=== PATIENT | female | born 2000 | race Caucasian/White ===

== ENCOUNTER 2021-04-28 14:24 | Emergency (ER) | payer SELFPAY ==
[2021-04-28 15:04] LABS: Absolute Lymphocytes (CBC) 1.8 K/uL (0.7-4.9); Hematocrit 40.3 % (36.0-45.0); Lymphocytes % 28.3 % (15.3-44.8); MPV 7.9 fL (7.6-11.3); RBC Red Blood Cell Count 5.05 M/uL (3.86-4.86)
--- NOTE | 2021-04-28 15:18 | RAD REPORT ---
EXAM DESCRIPTION: RAD - Chest Single View - 04/28/2021 2:50 pm CLINICAL HISTORY: CHEST PAIN Chest pain. COMPARISON: No comparisons FINDINGS: Portable technique limits examination quality. The lungs are grossly clear. The heart is normal in size. No displaced fractures. IMPRESSION: No acute intrathoracic process suspected.
[2021-04-28 15:28] LABS: BUN Blood Urea Nitrogen 8 mg/dL (7-18); Bicarbonate 25 mmol/L (21-32); Glucose Level 120 mg/dL (74-106); Potassium 3.9 mmol/L (3.5-5.1); Sodium Level 138 mmol/L (136-145)
[2021-04-28 15:51] LABS: Troponin High Sensitivity < 3.00 pg/mL (<58.9)
--- NOTE | 2021-04-28 16:00 | ER ---
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 Pt c/o right sided chest pain radiating to right shoulder. Coronavirus screen: At this time, the client does not indicate any symptoms associated with coronavirus-19. Ebola Screen: No symptoms or risks identified at this time. Initial Sepsis Screen: Does the patient meet any 2 criteria? No. Patient's initial sepsis screen is negative. Does the patient have a suspected source of infection? No. Patient's initial sepsis screen is negative. Risk Assessment: Do you want to hurt yourself or someone else? Patient reports no desire to harm self or others. Onset of symptoms was April 28, 2021. 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 - Social history:: Smoking status: Patient denies any tobacco usage or history of. Screenin:44 Abuse screen: Denies threats or abuse. Nutritional screening: No deficits noted. ap3 Tuberculosis screening: No symptoms or risk factors identified. Fall Risk None identified. Assessment: 14:43 General: Appears in no apparent distress. comfortable, Behavior is calm, cooperative, ap3 appropriate for age. Pain: Complains of pain in chest Pain radiates to right arm and left arm Pain began suddenly. Neuro: Level of Consciousness is awake, alert, obeys commands, Oriented to person, place, time, situation, Appropriate for age Gait is steady, Speech is normal. Cardiovascular: Reports chest pain, Chest pain is described as mild, quality is pressure, radiates to right to left arm(s) began 30 minutes prior to arrival. Respiratory: Airway is patent Respiratory effort is even, unlabored, Respiratory pattern is regular, symmetrical. 14:54 Reassessment: Patient and/or family updated on plan of care and expected duration. Pain ap3 level reassessed. Patient is alert, oriented x 3, equal unlabored respirations, skin warm/dry/pink. 15:40 Reassessment: Patient and/or family updated on plan of care and expected duration. Pain ap3 level reassessed. Patient is alert, oriented x 3, equal unlabored respirations, skin warm/dry/pink. Vital Signs: 14:30 BP 153 / 99; Pulse 87; Resp 18 S; Temp 98.8(TE); Pulse Ox 97% on R/A; Weight 108.86 kg aa5 (R); Height 5 ft. 8 in. (172.72 cm) (R); 15:36 BP 128 / 82; Pulse 81; Pulse Ox 100% ; ap3 14:30 Body Mass Index 36.49 (108.86 kg, 172.72 cm) aa5 ED Course: 14:27 Patient arrived in ED. kz 14:30 Arm band placed on. aa5 14:31 Myrtle Joshi FNP-C is [facility]. kb 14:31 Alvarez Krishnan MD is Attending Physician. kb 14:31 Triage completed. aa5 14:33 Marcia Valenzuela, DUSTIN is Primary Nurse. ap3 14:43 EKG done, by ED staff, reviewed by Myrtle BARBER. ap3 14:44 Patient has correct armband on for positive identification. Placed in gown. Bed in low ap3 position. Call light in reach. Side rails up X 1. Adult w/ patient. child monitor on. Pulse ox on. NIBP on. Door closed. Noise minimized. 14:45 Patient maintains SpO2 saturation greater than 95% on room air. ap3 14:50 Inserted saline lock: 20 gauge in right antecubital area, using aseptic technique. ap3 Blood collected. 14:51 Chest Single View XRAY In Process Unspecified. EDMS 16:32 No provider procedures requiring assistance completed. IV discontinued, intact, ap3 bleeding controlled, No redness/swelling at site. Pressure dressing applied. Administered Medications: No medications were administered Outcome: 16:00 Discharge ordered by . kb 16:32 Discharged to home ambulatory, with family. ap3 16:32 Condition: good 16:32 Discharge instructions given to patient, family, Instructed on discharge instructions, follow up and referral plans. Demonstrated understanding of instructions, follow-up care. 16:33 Patient left the ED. 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 Pt c/o right sided chest pain radiating to right shoulder aa5
--- NOTE | 2021-04-28 16:01 | EDPHYS ---
Physician Documentation [facility] Name: Mague Null Age: 21 yrs Sex: Female : 2000 Arrival Date: 04/28/2021 Time: 14:27 Bed 17 Private MD: ED Physician Alvarez Krishnan HPI: 04/28 14:55 This 21 yrs old Female presents to ER via Ambulatory with complaints of Chest Pain. kb 14:55 The patient or guardian reports chest pain that is located primarily in the anterior kb chest wall, right. The pain does not radiate. Associated signs and symptoms: The patient has no apparent associated signs or symptoms. The chest pain is described as sharp. Duration: The patient or guardian reports a single episode, that is still ongoing, but improving. Modifying factors: The symptoms are alleviated by nothing. the symptoms are aggravated by nothing. Severity of pain: At its worst the pain was moderate in the emergency department the pain has improved moderately. The patient has not experienced similar symptoms in the past. The patient has not recently seen a physician. 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 States the pain is getting better now. 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 - Social history:: Smoking status: Patient denies any tobacco usage or history of. ROS: 14:55 Constitutional: Negative for fever, chills, and weight loss. kb 14:55 Cardiovascular: Positive for chest pain, Negative for edema, orthopnea, palpitations, paroxysmal nocturnal dyspnea. 14:55 All other systems are negative. Exam: 14:53 Constitutional: This is a well developed, well nourished patient who is awake, alert, kb and in no acute distress. Head/Face: Normocephalic, atraumatic. ENT: Moist Mucous membranes Cardiovascular: Regular rate and rhythm with a normal S1 and S2. No gallops, murmurs, or rubs. No pulse deficits. Respiratory: Respirations even and unlabored. No increased work of breathing. Talking in full sentences Abdomen/GI: Soft, non-tender. No distention Skin: Warm, dry with normal turgor. Normal color. MS/ Extremity: Pulses equal, no cyanosis. Neurovascular intact. Full, normal range of motion. Neuro: Awake and alert, GCS 15, oriented to person, place, time, and situation. Moves all extremities. Normal gait. Psych: Awake, alert, with orientation to person, place and time. Behavior, mood, and affect are within normal limits. 14:53 ECG was reviewed by the Attending Physician. Vital Signs: 14:30 BP 153 / 99; Pulse 87; Resp 18 S; Temp 98.8(TE); Pulse Ox 97% on R/A; Weight 108.86 kg aa5 (R); Height 5 ft. 8 in. (172.72 cm) (R); 15:36 BP 128 / 82; Pulse 81; Pulse Ox 100% ; ap3 14:30 Body Mass Index 36.49 (108.86 kg, 172.72 cm) aa5 MDM: 14:33 Patient medically screened. kb 14:55 Data reviewed: vital signs, nurses notes. Data interpreted: Pulse oximetry: on room air kb is 97 %. Interpretation: normal. 16:00 Counseling: I had a detailed discussion with the patient and/or guardian regarding: the kb historical points, exam findings, and any diagnostic results supporting the discharge/admit diagnosis, lab results, radiology results, the need for outpatient follow up, a family practitioner, to return to the emergency department if symptoms worsen or persist or if there are any questions or concerns that arise at home. 04/28 14:34 Order name: CBC with Diff; Complete Time: 15:07 kb 04/28 14:34 Order name: Basic Metabolic Panel; Complete Time: 15:55 kb 04/28 14:34 Order name: IV Start; Complete Time: 14:53 kb 04/28 14:34 Order name: EKG; Complete Time: 14:34 kb 04/28 14:34 Order name: Chest Single View XRAY; Complete Time: 15:19 kb 04/28 14:34 Order name: Troponin High Sensitivity; Complete Time: 15:55 kb 04/28 14:34 Order name: EKG - Nurse/Tech; Complete Time: 14:43 kb EC:53 Rate is 79 beats/min. Rhythm is regular. QRS [place] is Normal. VA interval is normal at kb 150 msec. QRS interval is normal at 110 msec. QT interval is normal at 380 msec. Administered Medications: No medications were administered Disposition: 18:16 Co-signature as Attending Physician, Alvarez Krishnan MD I agree with the assessment and kdr plan of care. Disposition Summary: 04/28/21 16:00 Discharge Ordered Location: Home kb Condition: Stable kb Diagnosis - Chest pain, unspecified kb Followup: kb - With: Emergency Department - When: As needed - Reason: Worsening of condition Followup: kb - With: Private Physician - When: 2 - 3 days - Reason: Recheck today's complaints, Continuance of care, Re-evaluation by your physician Discharge Instructions: - Discharge Summary Sheet kb - Nonspecific Chest Pain, Adult, [id number] kb Forms: - Medication Reconciliation Form kb - Thank You Letter kb - Antibiotic Education kb - Prescription Opioid Use kb Signatures: Dispatcher [employer] EDSC Myrtle Joshi, ERIN-C ERIN-Alvarez Bennett MD MD kdr Calderon, Audri, RN RN aa5 Marcia Valenzuela RN RN ap3
[2021-04-28 16:53] VITALS: BP 128/82; O2SAT 100
[2021-04-28 16:54] VITALS: TEMP 98.8
--- NOTE | 2021-04-29 08:45 | EKG ---
Test Date: 2021-04-28 Test Time: 14:40:13 Agriculture Instructor: ALP MEASUREMENT RESULTS: Intervals: Rate: 79 KS: 150 QRSD: 110 QT: 380 QTc: 435 [place]: P: 51 KS: 150 QRS: 85 T: 59 INTERPRETIVE STATEMENTS: Normal sinus rhythm Normal ECG Compared to ECG 04/28/2021 14:39:44 No significant changes Electronically Signed On 04-29-21 08:42:20 CDT by Jagdish Taylor
--- NOTE | 2021-04-29 08:45 | EKG ---
Test Date: 2021-04-28 Test Time: 14:39:44 Equipment Coordinator: ALP MEASUREMENT RESULTS: Intervals: Rate: 82 KS: 152 QRSD: 104 QT: 378 QTc: 441 [place]: P: 55 KS: 152 QRS: 87 T: 65 INTERPRETIVE STATEMENTS: Normal sinus rhythm Normal ECG No previous ECG available for comparison Electronically Signed On 04-29-21 08:42:21 CDT by Jagdish Taylor
== END 2021-04-28 16:33 | disposition home or self-care (01) ==
LOC: ER 14:24
DX: R07.9 Chest pain, unspecified (principal); I10 Essential (primary) hypertension
CPT/HCPCS: 36415; 71045; 80048; 84484; 85025; 93005; 99285

== ENCOUNTER 2021-08-16 02:07 | Inpatient (IN) | payer OTHER, SELFPAY ==
[2021-08-16] MEDS ORDERED: ONDANSETRON 4 MG/2 ML VIAL ONE ×2 (02:41→13:23)
[2021-08-16] MEDS ORDERED: NA CHLORIDE 0.9% 1,000 ML ONE (02:41)
[2021-08-16 03:25] LABS: Urine Blood Negative (Negative); Urine Glucose Negative (Negative); Urine Protein 1+ (Negative); Urine Specific Gravity >=1.030 (1.005-1.030); Urine pH 6.5 (5.0-7.0)
[2021-08-16 03:34] LABS: Absolute Lymphocytes (CBC) 1.3 K/uL (0.7-4.9); Hematocrit 43.2 % (36.0-45.0); Lymphocytes % 8.4 % (15.3-44.8); MCV 81.2 fL (80-100); MPV 8.4 fL (7.6-11.3); RBC Red Blood Cell Count 5.32 M/uL (3.86-4.86)
[2021-08-16] MEDS ORDERED: MORPHINE 4 MG/ML SYR ONE (03:43)
[2021-08-16 03:55] LABS: Albumin 4.2 g/dL (3.4-5.0); Bilirubin Total 0.5 mg/dL (0.2-1.0); Potassium 3.9 mmol/L (3.5-5.1); Protein, Total 9.1 g/dL (6.4-8.2)
--- NOTE | 2021-08-16 06:09 | ER ---
Nurse's Notes [facility] Name: Mague Null Age: 21 yrs Sex: Female : 2000 Arrival Date: 08/16/2021 Time: 02:11 Bed 8 Private MD: Diagnosis: Lower abdominal pain, unspecified;Elevated white blood cell count;Unspecified acute appendicitis Presentation: 08/16 02:38 Chief complaint: Patient states: "Stomach problems, I have been throwing up, and I feel tw5 dizzy.". Coronavirus screen: Vaccine status: Patient reports receiving the 2nd dose of the covid vaccine. [employer]. Ebola Screen: Patient negative for fever greater than or equal to 101.5 degrees Fahrenheit, and additional compatible Ebola Virus Disease symptoms Patient denies exposure to infectious person. Patient denies travel to an Ebola-affected area in the 21 days before illness onset. Initial Sepsis Screen: Does the patient meet any 2 criteria? No. Patient's initial sepsis screen is negative. Does the patient have a suspected source of infection? No. Patient's initial sepsis screen is negative. Risk Assessment: Do you want to hurt yourself or someone else? Patient reports no desire to harm self or others. Onset of symptoms was August 16, 2021. 02:38 Method Of Arrival: Ambulatory tw5 02:38 Acuity: TONYA 3 tw5 Triage Assessment: 02:44 General: Appears uncomfortable, Behavior is calm, cooperative. Pain: Complains of pain tw5 in right lower quadrant and left lower quadrant. Neuro: Level of Consciousness is awake, alert, obeys commands, Oriented to person, place, time, situation. GI: Reports lower abdominal pain. 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 - Social history:: Smoking status: Patient denies any tobacco usage or history of. Screenin:46 Abuse screen: Denies threats or abuse. Denies injuries from another. Nutritional tw5 screening: No deficits noted. Tuberculosis screening: No symptoms or risk factors identified. Fall Risk IV access (20 points). Assessment: 02:46 GI: Reports nausea. tw5 03:41 General: Appears in no apparent distress. Behavior is calm, cooperative, appropriate tw5 for age. Pain: Pain currently is 7 out of 10 on a pain scale. GI: Abdomen is tender to palpation in right lower quadrant and left lower quadrant. 04:10 Reassessment: No changes from previously documented assessment. Patient and/or family kd3 updated on plan of care and expected duration. Pain level reassessed. Patient is alert, oriented x 3, equal unlabored respirations, skin warm/dry/pink. 06:05 Reassessment: Patient and/or family updated on plan of care and expected duration. Pain kd3 level reassessed. Patient is alert, oriented x 3, equal unlabored respirations, skin warm/dry/pink. 06:56 Reassessment: Patient states feeling better. Pain: Pain currently is 6 out of 10 on a tw5 pain scale. 07:30 General: Appears in no apparent distress. comfortable, Behavior is calm, cooperative, jd3 appropriate for age. Pain: Complains of pain in right lower quadrant Quality of pain is described as aching. Neuro: Beck Agitation-Sedation Scale (RASS): 0 - Alert and Calm Level of Consciousness is awake, alert, obeys commands, Oriented to person, place, time, situation. Cardiovascular: Capillary refill < 3 seconds Patient's skin is warm and dry. Respiratory: Airway is patent Respiratory effort is even, unlabored, Respiratory pattern is regular, symmetrical. GI: Abdomen is non-distended, Abdomen is tender to palpation in right lower quadrant Reports lower abdominal pain, nausea. : No signs and/or symptoms were reported regarding the genitourinary system. EENT: No signs and/or symptoms were reported regarding the EENT system. Derm: No signs and/or symptoms reported regarding the dermatologic system. Musculoskeletal: No signs and/or symptoms reported regarding the musculoskeletal system. Vital Signs: 02:38 BP 138 / 80; Pulse 81; Resp 18; Temp 98.3; Pulse Ox 100% on R/A; Weight 104.33 kg; tw5 Height 5 ft. 8 in. (172.72 cm); Pain 7/10; 03:41 BP 129 / 93; Pulse 102; Resp 18; Pulse Ox 99% on R/A; Pain 7/10; tw5 04:08 BP 126 / 80; Pulse 85; Resp 19; Pulse Ox 100% on R/A; kd3 06:05 BP 125 / 79; Pulse 94; Resp 18; Pulse Ox 100% on R/A; kd3 06:56 BP 131 / 81; Pulse 74; Resp 18; Pulse Ox 100% on R/A; Pain 6/10; tw5 06:56 Pain 6/10; tw5 08:10 BP 136 / 76; Pulse 97; Resp 16; Pulse Ox 99% on R/A; jd3 02:38 Body Mass Index 34.97 (104.33 kg, 172.72 cm) tw5 ED Course: 02:11 Patient arrived in ED. bp1 02:21 Nick Lockett MD is Attending Physician. donovan 02:28 Giuliana Hairston is Primary Nurse. tw5 02:44 Triage completed. tw5 02:44 Arm band placed on left wrist. tw5 02:46 Patient has correct armband on for positive identification. Placed in gown. Bed in low tw5 position. Call light in reach. 02:46 No provider procedures requiring assistance completed. Inserted saline lock: 20 gauge tw5 in left antecubital area, using aseptic technique. Blood collected. 03:19 CBC with Diff Sent. tw5 03:19 CMP Sent. tw5 03:19 Lipase Sent. tw5 04:21 CT Abd/Pelvis - IV Contrast Only In Process Unspecified. EDMS 06:08 Agapito Herrera MD is Hospitalizing Provider. donovan 06:56 Pulse ox on. NIBP on. Door closed. Noise minimized. Lights dimmed. Moved to private tw5 room. Warm blanket given. Pillow given. Verbal reassurance given. Assisted to bathroom. 13:22 Patient admitted, IV remains in place. jd3 Administered Medications: 02:48 Drug: NS 0.9% 1000 ml Route: IV; Rate: 1 bolus; Site: left antecubital; tw5 06:56 Follow up: Response: No adverse reaction; IV Status: Completed infusion; IV Intake: tw5 1000ml 02:48 Drug: Zofran (Ondansetron) 4 mg Route: IVP; Site: left antecubital; tw5 03:41 Follow up: Response: No adverse reaction tw5 03:41 Drug: morphine 4 mg Route: IVP; Infused Over: 4 mins; Site: left antecubital; tw5 06:56 Follow up: Pain 6/10 Adult; Response: No adverse reaction; Pain is decreased; RASS: tw5 Alert and Calm (0) 06:19 Drug: Zosyn (piperacillin-tazobactam) 3.375 grams Route: IVPB; Infused Over: 60 mins; kd3 Site: left antecubital; 06:56 Follow up: IV Status: Completed infusion; IV Intake: 100ml tw5 Medication: 04:09 VIS not applicable for this client. kd3 Intake: 06:56 IV: 100ml; Total: 100ml. tw5 06:56 IV: 1000ml; Total: 1100ml. tw5 Outcome: 06:09 Decision to Hospitalize by Provider. donovan 13:19 Admitted to OR accompanied by nurse, via stretcher, with chart, Report called to OR william and Roseline CHAN nurse for room 209 13:19 Condition: stable 13:19 Instructed on the need for admit, Demonstrated understanding of instructions. 13:24 Patient left the ED. william Signatures: Dispatcher [employer] EDNick Mark MD MD cha Davies, Jonathon, RN RN jd3 Jodi Hou Tiffany tw5 Ivy Clarke RN RN kd3 Corrections: (The following items were deleted from the chart) 06:45 02:46 GI: tw5 tw5
--- NOTE | 2021-08-16 06:09 | EDPHYS ---
Physician Documentation [facility] Name: Mague Null Age: 21 yrs Sex: Female : 2000 Arrival Date: 08/16/2021 Time: 02:11 Bed 8 Private MD: ED Physician Nick Lockett HPI: 08/16 03:34 This 21 yrs old Female presents to ER via Ambulatory with complaints of donovan Abdominal Cramping, Vomiting, Dizziness. 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 - Social history:: Smoking status: Patient denies any tobacco usage or history of. ROS: 03:35 Constitutional: Negative for fever, chills, and weight loss, Eyes: Negative for injury, donovan pain, redness, and discharge, ENT: Negative for injury, pain, and discharge, Neck: Negative for injury, pain, and swelling, Cardiovascular: Negative for chest pain, palpitations, and edema, Respiratory: Negative for shortness of breath, cough, wheezing, and pleuritic chest pain, Back: Negative for injury and pain, : Negative for injury, bleeding, discharge, and swelling, MS/Extremity: Negative for injury and deformity, Skin: Negative for injury, rash, and discoloration, Neuro: Negative for headache, weakness, numbness, tingling, and seizure, Psych: Negative for depression, anxiety, suicide ideation, homicidal ideation, and hallucinations, Allergy/Immunology: Negative for hives, rash, and allergies, Endocrine: Negative for neck swelling, polydipsia, polyuria, polyphagia, and marked weight changes, Hematologic/Lymphatic: Negative for swollen nodes, abnormal bleeding, and unusual bruising. 03:35 Abdomen/GI: Positive for abdominal pain, nausea, diarrhea, abdominal cramps, of the right upper quadrant, left upper quadrant and left lower quadrant. Exam: 03:35 Constitutional: This is a well developed, well nourished patient who is awake, alert, donovan and in no acute distress. Head/Face: Normocephalic, atraumatic. Eyes: Pupils equal round and reactive to light, extra-ocular motions intact. Lids and lashes normal. Conjunctiva and sclera are non-icteric and not injected. Cornea within normal limits. Periorbital areas with no swelling, redness, or edema. ENT: Nares patent. No nasal discharge, no septal abnormalities noted. Tympanic membranes are normal and external auditory canals are clear. Oropharynx with no redness, swelling, or masses, exudates, or evidence of obstruction, uvula midline. Mucous membranes moist. Neck: Trachea midline, no thyromegaly or masses palpated, and no cervical lymphadenopathy. Supple, full range of motion without nuchal rigidity, or vertebral point tenderness. No Meningismus. Chest/axilla: Normal chest wall appearance and motion. Nontender with no deformity. No lesions are appreciated. Cardiovascular: Regular rate and rhythm with a normal S1 and S2. No gallops, murmurs, or rubs. Normal PMI, no JVD. No pulse deficits. Respiratory: Lungs have equal breath sounds bilaterally, clear to auscultation and percussion. No rales, rhonchi or wheezes noted. No increased work of breathing, no retractions or nasal flaring. Back: No spinal tenderness. No costovertebral tenderness. Full range of motion. Skin: Warm, dry with normal turgor. Normal color with no rashes, no lesions, and no evidence of cellulitis. MS/ Extremity: Pulses equal, no cyanosis. Neurovascular intact. Full, normal range of motion. Neuro: Awake and alert, GCS 15, oriented to person, place, time, and situation. Cranial nerves II-XII grossly intact. Motor strength 5/5 in all extremities. Sensory grossly intact. Cerebellar exam normal. Normal gait. Psych: Awake, alert, with orientation to person, place and time. Behavior, mood, and affect are within normal limits. 03:35 Abdomen/GI: Inspection: abdomen appears normal, Bowel sounds: normal, Palpation: moderate abdominal tenderness, in the right upper quadrant, left upper quadrant and left lower quadrant, Liver: no appreciated palpable abnormalities, Hernia: not appreciated. Vital Signs: 02:38 BP 138 / 80; Pulse 81; Resp 18; Temp 98.3; Pulse Ox 100% on R/A; Weight 104.33 kg; tw5 Height 5 ft. 8 in. (172.72 cm); Pain 7/10; 03:41 BP 129 / 93; Pulse 102; Resp 18; Pulse Ox 99% on R/A; Pain 7/10; tw5 04:08 BP 126 / 80; Pulse 85; Resp 19; Pulse Ox 100% on R/A; kd3 06:05 BP 125 / 79; Pulse 94; Resp 18; Pulse Ox 100% on R/A; kd3 06:56 BP 131 / 81; Pulse 74; Resp 18; Pulse Ox 100% on R/A; Pain 6/10; tw5 06:56 Pain 6/10; tw5 08:10 BP 136 / 76; Pulse 97; Resp 16; Pulse Ox 99% on R/A; jd3 02:38 Body Mass Index 34.97 (104.33 kg, 172.72 cm) tw5 MDM: 02:21 Patient medically screened. [facility] 03:37 Differential diagnosis: appendicitis, bowel obstruction, Cholelithiasis, donovan diverticulitis, non-specific abd pain. Data reviewed: vital signs, lab test result(s), CBC, electrolytes, hepatic panel, urinalysis. Data interpreted: library monitor: not applicable for this patient encounter. rate is 81 beats/min, rhythm is normal sinus rhythm, Pulse oximetry: on room air is 100 %. Test interpretation: by ED physician or midlevel provider:. Counseling: I had a detailed discussion with the patient and/or guardian regarding: the historical points, exam findings, and any diagnostic results supporting the discharge/admit diagnosis, lab results, radiology results. 08/16 02:21 Order name: CBC with Diff; Complete Time: 03:36 [facility] 08/16 02:21 Order name: CMP; Complete Time: 04:07 [facility] 08/16 02:21 Order name: Lipase; Complete Time: 04:07 [facility] 08/16 03:26 Order name: Urine Dipstick-Ancillary; Complete Time: 03:33 [facility] 08/16 07:02 Order name: COVID-19 SARS RT PCR (Document "Date of Onset" if Symptomatic) tw5 08/16 02:21 Order name: IV Saline Lock; Complete Time: 02:47 [facility] 08/16 02:21 Order name: Labs collected and sent; Complete Time: 02:47 [facility] 08/16 03:34 Order name: CT Abd/Pelvis - IV Contrast Only [facility] 08/16 09:28 Order name: SARS-COV-2 RT PCR [facility] 08/16 02:21 Order name: Urine Dipstick-Ancillary (obtain specimen); Complete Time: 03:20 [facility] 08/16 02:21 Order name: Urine Test (obtain specimen); Complete Time: 03:20 donovan Administered Medications: 02:48 Drug: NS 0.9% 1000 ml Route: IV; Rate: 1 bolus; Site: left antecubital; tw5 06:56 Follow up: Response: No adverse reaction; IV Status: Completed infusion; IV Intake: tw5 1000ml 02:48 Drug: Zofran (Ondansetron) 4 mg Route: IVP; Site: left antecubital; tw5 03:41 Follow up: Response: No adverse reaction tw5 03:41 Drug: morphine 4 mg Route: IVP; Infused Over: 4 mins; Site: left antecubital; tw5 06:56 Follow up: Pain 6/10 Adult; Response: No adverse reaction; Pain is decreased; RASS: tw5 Alert and Calm (0) 06:19 Drug: Zosyn (piperacillin-tazobactam) 3.375 grams Route: IVPB; Infused Over: 60 mins; kd3 Site: left antecubital; 06:56 Follow up: IV Status: Completed infusion; IV Intake: 100ml tw5 Disposition Summary: 08/16/21 06:09 Hospitalization Ordered Hospitalization Status: Observation donovan Provider: Agapito Herrera cha Condition: Stable donovan Problem: new donovan Symptoms: have improved donovan Bed/Room Type: Standard donovan Location: Telemetry/MedSurg (observation)(08/16/21 12:04) em1 Room Assignment: [facility](08/16/21 12:04) em1 Diagnosis - Lower abdominal pain, unspecified donovan - Elevated white blood cell count donovan - Unspecified acute appendicitis donovan Forms: - Medication Reconciliation Form donovan - SBAR form donovan Signatures: Dispatcher [employer] Nick Pineda MD MD cha Williams, Irene, RN RN iw Cristobal Willson1 Giuliana Hairston tw5 Ivy Clarke RN RN kd3 Corrections: (The following items were deleted from the chart) :44 06:09 Telemetry/MedSurg (observation) donovan iw 09:44 06:09 donovan iw 12:04 09:44 [facility] ER HOLD iw em1 12:04 09:44 ERHOLD- iw em1
[2021-08-16] MEDS ORDERED: NA CHLORIDE 0.9% 100 ML ONE (06:18)
[2021-08-16] MEDS ORDERED: PIPERACIL/TAZO 3.375 GM VIAL IV ONE (06:18)
--- NOTE | 2021-08-16 10:27 | RAD REPORT ---
EXAM DESCRIPTION: CT - Abdomen Pelvis W Contrast - 08/16/2021 6:37 am CLINICAL HISTORY: Abdominal pain, acute, nonlocalized COMPARISON: None Available. TECHNIQUE: CT of the abdomen and pelvis performed following IV administration of iodinated contras t. This exam was performed according to our departmental dose-optimization program, which includes au tomated exposure control, adjustment of the mA and/or kV according to patient size and/or use of iter ative reconstruction technique. FINDINGS: Lung Bases: The visualized lung bases are clear. Bones: No destructive bone lesions identified. Abdomen: Liver: The liver has normal size and decreased density. No intrahepatic biliary dilatation. Gallbladder: No calcified gallstones. Spleen, Pancreas, and Adrenal Glands: The spleen, pancreas, and adrenal glands are unremarkable. Kidneys: No hydronephrosis or obstructing calculus. Vasculature: The aorta and IVC have normal caliber and position. The portal vein is patent. The pro ximal visceral and renal arteries are patent. Stomach: Small hiatal hernia. Other: No free intraperitoneal air. No definite lymphadenopathy. Pelvis: Bladder: Urinary bladder is unremarkable. Bowel: No dilated loops of large or small bowel. Mild wall thickening with submucosal fatty infiltr ation of the colon. Appendix: Dilation of the appendix measuring 0.9 cm with minimal periappendiceal inflammatory [place] e. Small amount of free fluid. Pelvis: Uterus is not enlarged. Small bilateral ovarian cysts, largest measuring 2.5 cm. IMPRESSION: 1. Dilation of the appendix measuring 0.9 cm with minimal periappendiceal inflammatory change. These findings could be seen with early acute appendicitis. 2. Mild wall thickening with submucosal fatty infiltration of the colon. These findings could be se en with chronic inflammatory colitis. 3. Small bilateral ovarian cysts, largest on the left measuring 2.5 cm. No follow-up imaging recomm ended. 4. Hepatic steatosis. Electronically signed by: Damien Magaña 08/16/2021 5:56 AM CDT Due to temporary technical issues with the PACS/Fluency reporting system, reports are being signed by the in house radiologists without review as a courtesy to insure prompt reporting. The interpreting radiologist is fully responsible for the content of the report.
[2021-08-16] MEDS ORDERED: ACETAMINOPHEN 500 MG TAB PO PRN (10:37)
[2021-08-16] MEDS: FAMOTIDINE 20 MG/2 ML VIAL IV SCH ×2 (10:37→20:43)
[2021-08-16] MEDS: NA CHLORIDE 0.9% 1,000 ML IV SCH ×3 (10:37→18:37)
[2021-08-16] MEDS ORDERED: ONDANSETRON 4 MG/2 ML VIAL IV PRN (10:37)
[2021-08-16] MEDS: MORPHINE 4 MG/ML SYR IV PRN (11:44)
[2021-08-16 12:10] VITALS: BMI 34.9
[2021-08-16] MEDS ORDERED: FENTANYL CITR 100 MCG/2 ML ONE (13:21)
[2021-08-16] MEDS ORDERED: MIDAZOLAM HCL 2 MG/2 ML INJ ONE (13:21)
[2021-08-16] MEDS ORDERED: LIDOCAINE 1% MPF 5 ML VIAL ONE (13:21)
[2021-08-16] MEDS ORDERED: propofoL 200 MG/20 ML VIAL IV ONE (13:21)
[2021-08-16] MEDS ORDERED: dexAMETHasone 4 MG/ML VIAL ONE (13:22)
[2021-08-16] MEDS ORDERED: GLYCOPYRROLATE 0.2 MG/ML SYR ONE (13:22)
[2021-08-16] MEDS ORDERED: MORPHINE 10 MG/ML VIAL ONE (13:23)
[2021-08-16] MEDS ORDERED: ROCURONIUM 50 MG/5 ML VIAL IV ONE (13:23)
[2021-08-16] MEDS ORDERED: KETOROLAC 30 MG/ML INJ ONE (13:23)
[2021-08-16] MEDS ORDERED: NEOSTIGMINE 1 MG/ML -10 ML VIAL ONE (13:31)
[2021-08-16] MEDS ORDERED: BUPIVACAINE 0.5% Inj,MDV 50 mL VIAL ONE (13:39)
--- NOTE | 2021-08-16 13:55 | P.HP ---
Date of Service: 08/16/21 PC: This 21-year-old female presented to the emergency room with severe abdominal pain for diagnosis and treatment. HPC: Patient was in the library, and noticed that she started having abdominal pain, felt lightheaded and dizzy. Started having periumbilical pain at that time. Pain has intensified and finally last night she could no longer stand it and came to our emergency room. PSHx: Negative PMHx: Hypertension Social Hx: No known allergies Sys R: No cough, wheeze, shortness of breath. No chest pain or palpitations. Has had some irregular periods over the last few months and suspect that she may be PCOS. Has not been checked out for it. Not on any hormones. O/E: Awake alert vital signs are stable afebrile HEENT: Within normal limits Chest: Air entry equal bilaterally Abd: Tender in the lower abdomen particularly on the right side with mild guarding. [place]: Intact Data: Elevated white cell count, CT scan suggest early appendicitis Impression: Acute abdomen with possible appendicitis Plan: I will take to the operating for laparoscopic possible open appendectomy. The risks of this procedure have been discussed. The possibility of bleeding, infection, injury to bowel blood vessels and surrounding structures was outlined. The possible need for open and/or further surgeries and procedures was discussed. She understands and wants us to proceed.
--- NOTE | 2021-08-16 15:23 | P.OP ---
Preoperative diagnosis: Acute abdomen Postoperative diagnosis: Acute appendicitis Primary procedure: Laparoscopic appendectomy Anesthesia: General Estimated blood loss: Less than 10 cc Specimen: 1 appendix Findings: Acute appendicitis Operative Technique: The patient brought the operating room and placed supine on the table. After the induction of adequate general and oral tracheal anesthesia, and the sterile insertion of a Ramon catheter, the abdomen was prepped with a Betadine solution, she was draped in the usual aseptic manner. A subumbilical incision was made. This was brought down through the skin and subcutaneous tissue. The Visiport was used to enter the peritoneal cavity and created pneumoperitoneum to approximately 12 mmHg. Under direct vision a 5 mm trocar was placed in the lower midline, and another on the right lateral side of the abdomen. The patient was then placed in marked Trendelenburg. The table was then rolled to the left. We can now visualize the right lower quadrant. There was an acutely inflamed appendix. The appendix was grasped and elevated. We were now able to establish a window in the base of the mesentery of the appendix just at its junction with the cecum. Having enlarged just the 10 mm trocar was now converted so we could pass our stapler to the peritoneal cavity. The stapler was placed across the base of the appendix at its junction with the cecum and fired. The mesentery of the appendix was then taken down with a vascular reload. Having detached the appendix, it was placed into an Endo Catch and brought out through the umbilical trocar site. Attention was turned back towards the right lower quadrant. No active bleeding was noted in the area. The patient was now returned to the neutral position on the OR table. The umbilical trocar site was approximated using the Endo Close and an absorbable suture. At this point the pneumoperitoneum was collapsed, the trochars removed, and wero were applied to the skin. At the end of the procedure she was stable and sent to the recovery room. Needle sponge instrument count were correct. Complications: None Transferred to: Recovery Room Condition: Good
[2021-08-16] MEDS: HYDROCODONE/APAP 7.5/325 MG TAB PO PRN ×2 (15:56→20:43)
[2021-08-16] MEDS: PIPER TAZO 3.375 GM in NA CHLORIDE 0.9% 100 ML IV SCH ×2 (15:56→22:01)
[2021-08-16 16:03] VITALS: O2SAT 96
[2021-08-17] MEDS: NA CHLORIDE 0.9% 1,000 ML IV SCH ×2 (02:37→09:02)
[2021-08-17] MEDS: MORPHINE 4 MG/ML SYR IV PRN (05:03)
[2021-08-17] MEDS: PIPER TAZO 3.375 GM in NA CHLORIDE 0.9% 100 ML IV SCH ×2 (06:20→14:59)
[2021-08-17] MEDS: FAMOTIDINE 20 MG/2 ML VIAL IV SCH (09:01)
[2021-08-17 15:47] VITALS: BP 149/86; TEMP 98.7
--- OUTSIDE RECORDS SUMMARY | 2021-08-27 19:34 | XMS REPORT | Continuity of Care Document ---
:2000 Author Organization [facility] t Address [address] [place] [address] 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 Allergies, Adverse Reactions, Alerts Allergy Allergy Status Severity Reaction(s) Onset Inactive Treating Comm ents Source Name Type Date Date Clinician NO KNOWN Drug Active [facility] ALLERGIE [facility] Medications This patient has no known medications. Procedures This patient has no known procedures. Encounters Start End Encounter Admission Attending Care Care Encounter Source Date/Time Date/Time Type Type Clinicians Facility Department ID 2019-09-26 2019-09-26 Outpatient Chuyita JAIN [facility] [id number] [facility] 13:45:00 13:45:00 SUNIL [facility] 2019-09-15 2019-09-15 Outpatient cMcDonald [facility] [id number] -[id number] [place] 11:14:00 11:14:00 [facility] 2019-09-15 2019-09-15 Outpatient cMcDonald [facility] MMG [id number] [place] 11:14:00 11:14:00 [facility] 2019-09-09 2019-09-09 Emergency X [facility] ERT [id number] [facility] 15:52:00 15:52:00 [facility] Results This patient has no known results.
== END 2021-08-17 17:30 | disposition home or self-care (01) | DRG 343 ==
LOC: ER 02:07 → ERHOLD 06:19 → OBSVTOIN 09:10 → 2ND 13:06
PROVIDERS: ADMIT Surgery; ATTEND Surgery
PROC: 0DTJ4ZZ Resection of Appendix, Percutaneous Endoscopic Approach (ICD-10-PCS; principal; 2021-08-16 14:00)
DX: K35.80 Unspecified acute appendicitis (principal); I10 Essential (primary) hypertension; E66.9 Obesity, unspecified; Z68.34 Body mass index [BMI] 34.0-34.9, adult; Z20.822 Contact with and (suspected) exposure to COVID-19
CPT/HCPCS: 36415; 74177; 80053; 81003; 83690; 85025; 88304; 94010; 96361; 96365; 96375; 99285; G0378; J1100; J2250; J2405; J2543; J2704; J2710; J3010; J3490; J7030; Q9967; U0003

== ENCOUNTER 2024-11-08 16:46 | Emergency (ER) | payer BC, OTHER ==
--- OUTSIDE RECORDS SUMMARY | 2024-11-08 16:49 | XMS REPORT | Continuity of Care Document ---
Author Name Unknown Address [address] [place] [address] [facility] [place] Address 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 Role Phone CARMEN CAMPOSH Primary Care Physician UnavailSANA Dahl Attending Clinician Unavailable SHIVA ENCISO Attending Clinician UnavailSHIVA Glover Attending Clinician Unavaila SUNIL Abraham Attending Clinician Unavailable Lesli Attending Clinician Unavailable Lesli Admitting Clinician Unavailable Payers Payer Name Policy Type Policy Number Effective Date Expirati on Date [facility] [id number] 2014 00:00:00 2022 00:00:00 [facility] [place] [facility] [id number] 2022 00:00:00 [facility] [id number] 2017 00:00:00 [facility] [place] (MEDICAID HMO) [id number] 2012 00:00:00 [place] [id number] 2019 00:00:00 Allergies, Adverse Reactions, Alerts Allergy Name Allergy Type Status Severity Reaction(s) Onset Date Inactive Date Treating Clinician Comments Source NO KNOWN ALLERGIE S Drug Class Active [facility] Encounters Start Date/Time End Date/Time Encounter Type Admission Type Attending Clinicians Care Facility Care Department Encounter ID Source 2022-10-09 13:00:00 2022-10-09 13:00:00 Outpatient SANA GAGNON [facility] [id number] [facility] 2022-09-29 14:30:00 2022-09-29 14:30:00 Outpatient SHIVA COPELAND CHERYAL [facility] [id number] [facility] 2019-09-26 13:45:00 2019-09-26 13:45:00 Outpatient SUNIL PALAFOX [facility] [id number] [facility] 2019-09-09 15:52:00 2019-09-09 15:52:00 Emergency X [facility] ERT [id number] [facility]
--- NOTE | 2024-11-08 18:46 | ER ---
Nurse's Notes [facility] Name: Kriss Null Age: 24 yrs Sex: Female : 2000 Arrival Date: 11/08/2024 Time: 16:46 Bed 5 Private MD: Diagnosis: Infectious mononucleosis, unspecified without complication Presentation: 11/08 17:01 Chief complaint: Patient states: SORE THROAT THAT BEGAN WEDNESDAY, WORSENED ON WEDNESDAY dd2 WITH SWOLLEN THROAT, PAIN, CHILLS, VOMITING AND DIFFICULTY SWALLOWING. Coronavirus screen: At this time, the client does not indicate any symptoms associated with coronavirus-19. Ebola Screen: No symptoms or risks identified at this time. Initial Sepsis Screen: Does the patient meet any 2 criteria? No. Patient's initial sepsis screen is negative. Does the patient have a suspected source of infection? No. Patient's initial sepsis screen is negative. Risk Assessment: Do you want to hurt yourself or someone else? Patient reports no desire to harm self or others. Onset of symptoms was November 04, 2024. 17:01 Method Of Arrival: Ambulatory dd2 17:01 Acuity: TONYA 3 dd2 Triage Assessment: 17:04 General: Appears in no apparent distress. uncomfortable, Behavior is calm, cooperative, dd2 appropriate for age. Pain: Complains of pain in throat. EENT: Throat is reddened has patchy exudate has enlarged tonsils bilaterally Reports difficulty swallowing pain when swallowing Pain is 8 out of 10 on a pain scale. 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 - Infectious Disease History:: Denies. - Social history:: Smoking status: Patient denies any tobacco usage or history of. Screenin:02 [facility] ED Fall Risk Assessment (Adult) History of falling in the last 3 months, bp including since admission No falls in past 3 months (0 pts) Confusion or Disorientation No (0 pts) Intoxicated or Sedated No (0 pts) Impaired Gait No (0 pts) Mobility Assist Device Used No (0 pt) Altered Elimination No (0 pt) Score/Fall Risk Level 0 - 2 = Low Risk Oriented to surroundings. Abuse screen: Denies threats or abuse. Denies injuries from another. Nutritional screening: No deficits noted. Tuberculosis screening: No symptoms or risk factors identified. Assessment: 17:05 General: SEE TRIAGE NOTE. Respiratory: Airway is patent Respiratory effort is even, bp unlabored, Breath sounds are clear bilaterally. Vital Signs: 17:01 BP 167 / 120; Pulse 103; Resp 19; Temp 98.7; Pulse Ox 100% ; Weight 104.33 kg; Height 5 dd2 ft. 8 in. ; Pain 8/10; 19:01 BP 147 / 90; Pulse 95; Resp 18; Pulse Ox 100% ; bp 17:01 Body Mass Index 34.97 (104.33 kg, 172.72 cm) dd2 17:01 Pain Scale: Adult dd2 ED Course: 16:50 Patient arrived in ED. im 16:50 Dave Nguyễn FNP-C is PHCP. dr5 16:50 Reggie Feldman DO is Attending Physician. dr5 17:04 Triage completed. dd2 17:04 Arm band placed on right wrist. dd2 17:08 Group A Streptococcus Rapid Sent. dd2 17:45 Gurpreet Osborne, RN is Primary Nurse. bp 17:50 Initial lab(s) drawn, by clinical laboratory science professor, sent to lab. ts3 19:02 Patient has correct armband on for positive identification. bp 19:02 No provider procedures requiring assistance completed. Patient did not have IV access bp during this emergency room visit. Administered Medications: 17:46 Drug: Dexamethasone IM 10 mg IM once Route: IM; Site: left deltoid; dd2 19:01 Follow up: Response: No adverse reaction db Outcome: 18:46 Discharge ordered by MD. dr5 19:02 Discharged to home ambulatory, with family, bp 19:02 Condition: stable 19:02 Discharge instructions given to patient, Instructed on discharge instructions, follow up and referral plans. medication usage, Demonstrated understanding of instructions, follow-up care, medications, Prescriptions given X 1, 19:03 Patient left the ED. bp Signatures: Gurpreet Osborne RN RN bp Benton, Danielle, RN RN db Alida Albert im NANCY BAKER RN RN dd2 Dave Nguyễn FNP-C PROJECT SURVEYOR-[facility]5 Tonie Valerio ts3
--- NOTE | 2024-11-08 18:46 | EDPHYS ---
Physician Documentation [facility] Name: Kriss Null Age: 24 yrs Sex: Female : 2000 Arrival Date: 11/08/2024 Time: 16:46 Bed 5 Private MD: ED Physician Reggie Feldman HPI: 11/08 19:11 This 24 yrs old Female presents to ER via Ambulatory with complaints of Sore dr5 Throat. 19:11 The patient presents with sore throat. dr5 19:12 Onset: The symptoms/episode began/occurred 2 day(s) ago. Patient is a 24-year-old dr5 female with history of hypertension coming in with sore throat that started 2 days ago. Patient denies sick contacts. Patient reports that she has had subjective fever.. 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 - Infectious Disease History:: Denies. - Social history:: Smoking status: Patient denies any tobacco usage or history of. ROS: 19:12 Constitutional: as per hpi dr5 Exam: 19:12 Constitutional: This is a well developed, well nourished patient who is awake, alert, dr5 and in no acute distress. Head/Face: Normocephalic, atraumatic. Eyes: Pupils equal round and reactive to light, extra-ocular motions intact. Lids and lashes normal. Conjunctiva and sclera are non-icteric and not injected. Cornea within normal limits. Periorbital areas with no swelling, redness, or edema. Neck: Trachea midline, no thyromegaly or masses palpated, and no cervical lymphadenopathy. Supple, full range of motion without nuchal rigidity, or vertebral point tenderness. No Meningismus. Chest/axilla: Normal chest wall appearance and motion. Nontender with no deformity. No lesions are appreciated. Cardiovascular: Regular rate and rhythm with a normal S1 and S2. Normal PMI, no JVD. No pulse deficits. Respiratory: Lungs have equal breath sounds bilaterally, clear to auscultation. No rales, rhonchi or wheezes noted. No increased work of breathing, no retractions or nasal flaring. Abdomen/GI: Soft, non-tender, non-distended Back: No spinal tenderness. No costovertebral tenderness. Full range of motion. Skin: Warm, dry with normal turgor. Normal color with no rashes, no lesions, and no evidence of cellulitis. MS/ Extremity: Pulses equal, no cyanosis. Neurovascular intact. Full, normal range of motion. Neuro: Awake and alert, GCS 15, oriented to person, place, time, and situation. Cranial nerves II-XII grossly intact. Motor strength 5/5 in all extremities. Sensory grossly intact. Cerebellar exam normal. Normal gait. 19:12 ENT: External ear(s): are unremarkable, Ear canal(s): are normal, TM's: are normal, Nose: is normal, Mouth: is normal, Posterior pharynx: Tonsils: bilaterally enlarged, with erythema, with exudate, Uvula: normal, Vital Signs: 17:01 BP 167 / 120; Pulse 103; Resp 19; Temp 98.7; Pulse Ox 100% ; Weight 104.33 kg; Height 5 dd2 ft. 8 in. ; Pain 8/10; 19:01 BP 147 / 90; Pulse 95; Resp 18; Pulse Ox 100% ; bp 17:01 Body Mass Index 34.97 (104.33 kg, 172.72 cm) dd2 17:01 Pain Scale: Adult dd2 MDM: 17:01 Medical Screening Exam initiated dr5 19:12 Differential diagnosis: group A strep tonsillitis, mononucleosis, tonsillitis. Data dr5 reviewed: vital signs, nurses notes, lab test result(s), Strep Negative, Randall Positive. Consideration of Admission/Observation Escalation of care including admission/observation considered. Escalation considered patient was not able to drink fluids.. I considered the following discharge prescriptions or medication management in the emergency department I discussed and recommended Over The Counter medications, Medications were administered in the Emergency Department. See MAR. 19:17 Care significantly affected by the following chronic conditions: Hypertension. Care dr5 significantly affected by the following Social Determinants of Health: Poor access to healthcare and/or lack of insurance, Poor access to transportation, Problems related to employment. Counseling: I had a detailed discussion with the patient and/or guardian regarding the historical points, exam findings, and any diagnostic results supporting the discharge/admit diagnosis, the presence of at least one elevated blood pressure reading (>120/80) during this emergency department visit, lab results, the need for outpatient follow up, for definitive care, a family practitioner, to return to the emergency department if symptoms worsen or persist or if there are any questions or concerns that arise at home. Medication response: Dexamethasone. Response to treatment: the patient's symptoms have markedly improved after treatment. Special discussion: I discussed with the patient/guardian in detail that at this point there is no indication for admission to the hospital. It is understood, however, that if the symptoms persist or worsen the patient needs to return immediately for re-evaluation. Based on the history and exam findings, there is no indication for further emergent testing or inpatient evaluation. I discussed with the patient/guardian the need to see the primary care provider for further evaluation of the symptoms. ED course: Patient found to be positive for mono. Discussed increase hydration, Tylenol Motrin as needed for pain and fever. Explained no contact sports or any risk of hitting left upper quadrant due to splenomegaly. All questions answered. Strict ER precautions given. 11/08 16:50 Order name: Group A Streptococcus Rapid; Complete Time: 17:22 dr5 11/08 16:50 Order name: Randall Screen Profile; Complete Time: 18:38 dr5 11/08 17:23 Order name: Throat Culture EDMS Administered Medications: 17:46 Drug: Dexamethasone IM 10 mg IM once Route: IM; Site: left deltoid; dd2 19:01 Follow up: Response: No adverse reaction db Disposition: 19:13 I was immediately available on-site in the Emergency Department for consultation in the ms3 care of the patient. Disposition Summary: 11/08/24 18:46 Discharge Ordered Notes: Location: Home dr5 Condition: Stable dr5 Diagnosis - Infectious mononucleosis, unspecified without complication dr5 Followup: dr5 - With: Emergency Department - When: As needed - Reason: Worsening of condition Followup: dr5 - With: Private Physician - When: 1 - 2 days - Reason: Recheck today's complaints, Continuance of care, Re-evaluation by your physician Discharge Instructions: - Discharge Summary Sheet dr5 - Infectious Mononucleosis dr5 Forms: - Work release form rv1 - Medication Reconciliation Form dr5 - Patient Portal Instructions dr5 - Leadership Thank You Letter dr5 Prescriptions: - Medrol (Sulaiman) 4 mg Oral Tablets, Dose Pack - take 1 tablet ORAL route as directed - follow package instructions; 1 packet; dr5 Refills: 0, Product Selection Permitted Signatures: Dispatcher [employer] EDReggie Naylor, DO DOE ms3 NANCY BAKER RN RN dd2 Dave Nguyễn, MUD MIXER OPERATOR-C MUD MIXER OPERATOR-Cdr5 Kanchan Mednoza RN db
[2024-11-08 19:45] VITALS: TEMP 98.7; O2SAT 100
[2024-11-08 19:47] VITALS: BP 147/90
== END 2024-11-08 19:03 | disposition home or self-care (01) ==
LOC: ER 16:46
DX: B27.90 Infectious mononucleosis, unspecified without complication (principal); I10 Essential (primary) hypertension
CPT/HCPCS: 87070; 36415; 86308; 96372; 99284; J1100